=== PATIENT | female | born 1985 | race Caucasian/White ===

== ENCOUNTER 2019-08-06 18:58 | Emergency (ER) | payer MEDICAID ==
[~2019-08-06] VITALS: Ht 170.2 cm; Wt 50.3 kg
[2019-08-06] MEDS ORDERED: LORAZEPAM 1 MG TABLET PO ONE (19:30)
--- NOTE | 2019-08-06 19:30 | NUR ---
LOU, PICKED UP AT IN AND OUT, BRODERICK BUENO, ADMITS ON TAKING METH AND MARIJUANA, HAD 2 GLASS OF ALCOHOL, DENIES SI/HI, WANTS REHAB. PT AAOX3, VSS. DENIES CP, SOB, DIZZINESS, N/V @ THIS TIME. SEEN & EVAL'D BY MELISSA GLASGOW. PT CALM & COOPERATIVE. WILL CONT TO MONITOR.
[2019-08-06] MEDS ORDERED: LORAZEPAM 1 MG TABLET ONE (19:31)
[2019-08-06 19:50] LABS: BASOPHILS % (AUTO) 0.8 % (0.0-2.0); HEMATOCRIT 37 % (33-45); HEMOGLOBIN 12.2 g/dL (11.5-14.8); LYMPHOCYTES # (AUTO) 1.8 /CMM (0.8-4.8); LYMPHOCYTES % (AUTO) 30.1 % (20.0-44.0); MEAN CORPUSCULAR HGB CONC 33 g/dl (31.0-36.0); MEAN CORPUSCULAR VOLUME 90 fL (82-100); MONOCYTES # (AUTO) 0.4 /CMM (0.1-1.30); MONOCYTES % (AUTO) 7.1 % (2.0-12.0); NEUTROPHILS # (AUTO) 3.6 /CMM (1.8-8.9); PLATELET COUNT (AUTO) 342 /CMM (150-450); WHITE BLOOD COUNT (AUTO) 5.9 K/uL (4.3-11.0)
[2019-08-06 20:13] LABS: ALANINE AMINOTRANSFERASE 22 U/L (12-78); ALBUMIN 4.2 g/dL (3.4-5.0); ALKALINE PHOSPHATASE 67 U/L (46-116); ASPARTATE AMINOTRANSFERASE 20 U/L (15-37); BILIRUBIN,DIRECT 0.1 mg/dL (0.0-0.2); BILIRUBIN,TOTAL 0.3 mg/dL (0.2-1.0); CALCIUM, SERUM 9.6 mg/dL (8.5-10.1); CARBON DIOXIDE 28 mmol/L (21-32); CHLORIDE 101 mmol/L (98-107); CREATININE 0.8 mg/dL (0.6-1.3); GLUCOSE 106 mg/dL (74-106); POTASSIUM 3.2 mmol/L (3.5-5.1); SODIUM SERUM 139 mmol/L (136-145); UREA NITROGEN, BLOOD 13 mg/dL (7-18)
[2019-08-06 20:14] LABS: SALICYLATE < 2.8 mg/dL (2.8-20.0)
[2019-08-06 20:24] LABS: ALCOHOL, BLOOD 69 mg/dL (0-0)
--- NOTE | 2019-08-06 20:30 | NUR ---
MEDICATED ORDERED, PT CORBY WELL.
[2019-08-06 20:43] LABS: BILIRUBIN,URINE Negative (NEGATIVE); BLOOD, URINE Large Ery/uL (NEGATIVE); COLOR,URINE Red (YELLOW); KETONES,URINE Negative (NEGATIVE); LEUKOCYTE ESTERASE ,URINE Trace (NEGATIVE); NITRITE, URINE Negative (NEGATIVE); PROTEIN,URINE 100 mg/dl (NEGATIVE); UGLUCOSE Negative (NEGATIVE); UROBILINOGEN,URINE 0.2 EU/dL (0.2)
[2019-08-06 20:52] LABS: APPEARANCE,URINE HAZY (CLEAR)
[2019-08-06 20:53] LABS: BACTERIA,URINE Few /HPF (None Seen); RBC,URINE 51-80 /HPF (0-2); SQUAMOUS EPITHELIAL CELL,UR Few /HPF (None Seen)
--- NOTE | 2019-08-06 22:24 | NUR ---
Patient discharged to home in stable condition. Written and verbal after care instructions given. Patient verbalizes understanding of instruction. GIVEN HANDOUTS & REFERRAL PACKETS TO REHAB CENTERS AND PHONE NUMBERS TO SUBSTANCE ABUSE HOTLINE.
[2019-08-06 22:26] VITALS: BP 130/74
== END 2019-08-06 22:27 | disposition home or self-care (01) ==
LOC: ER 19:08
DX: F19.10 Other psychoactive substance abuse, uncomplicated (principal); Z72.89 Other problems related to lifestyle
CPT/HCPCS: 36415; 80048; 80076; 80305; 80307; 80329; 81001; 84702; 84703; 85025; 87086; 99283; G0480; 81000-TC; 87186-TC

== ENCOUNTER 2020-08-24 18:04 | Emergency (ER) | payer MEDICAID, OTHER ==
[~2020-08-24] VITALS: Ht 172.7 cm; Wt 60.8 kg
--- NOTE | 2020-08-24 18:16 | NUR ---
[id number], C/O PAUL. KNEE PAIN & RIGHT ELBOW SCAB, TO ER BED 10, HOOKED TO MONITOR, CHANGED TO GOWN, WARM BLANKET PROVIDED, AWAITING MD LARSEN
--- NOTE | 2020-08-24 18:23 | NUR ---
MELISSA HOOPER AT BEDSIDE
[2020-08-24] MEDS ORDERED: ACETAMINOPHEN 650 MG/20.3 ML UDC PO ONE (18:30)
[2020-08-24] MEDS ORDERED: ACETAMINOPHEN ES 500 MG TABLET ONE (18:32)
--- NOTE | 2020-08-24 18:34 | NUR ---
BILATERAL KNEE WOUND AND R ELBOW CLEANSED WITH NS, PAT DRY, BACITRACIN OINTMENT APPLIED. COVERED WITH DRY DRESSING.
--- NOTE | 2020-08-24 18:56 | NUR ---
Patient given written and verbal discharge instructions. Patient verbalizes understanding of instructions. Patient is ambulatory with steady gait. Refuses offer of group home placement. Patient given list of available shelters in surrounding area. Name band removed. On proper clothing upon discharge. All belongings with the patient upon discharge.
[2020-08-24 18:57] VITALS: BP 142/84
== END 2020-08-24 19:04 | disposition home or self-care (01) ==
LOC: ER 18:07
DX: S80.212A Abrasion, left knee, initial encounter (principal); S80.211A Abrasion, right knee, initial encounter; S50.311A Abrasion of right elbow, initial encounter; Z59.0 Homelessness; W19.XXXA Unspecified fall, initial encounter; Y93.89 Activity, other specified; Y92.89 Other specified places as the place of occurrence of the external cause; Y99.8 Other external cause status
CPT/HCPCS: 99283; A6403

== ENCOUNTER 2020-08-29 17:41 | Emergency (ER) | payer MEDICAID ==
[~2020-08-29] VITALS: Ht 172.7 cm; Wt 60.8 kg
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
[2020-08-29 18:30] LABS: BASOPHILS % (AUTO) 0.3 % (0.0-2.0); EOSINOPHILS % (AUTO) 0.8 % (0.0-6.0); HEMATOCRIT 36 % (33-45); HEMOGLOBIN 11.6 g/dL (11.5-14.8); MEAN CORPUSCULAR HGB CONC 32 g/dl (31.0-36.0); MEAN CORPUSCULAR VOLUME 89 fL (82-100); MONOCYTES # (AUTO) 0.4 /CMM (0.1-1.30); MONOCYTES % (AUTO) 6.6 % (2.0-12.0); NEUTROPHILS % (AUTO) 61.3 % (43.0-81.0); PLATELET COUNT (AUTO) 418 /CMM (150-450); RED BLOOD CELL COUNT(AUTO) 4.03 MIL/uL (4.0-5.2); WHITE BLOOD COUNT (AUTO) 6.5 K/uL (4.3-11.0)
[2020-08-29 18:36] LABS: CREATININE 0.9 mg/dL (0.6-1.3); POTASSIUM 3.5 mmol/L (3.5-5.1)
[2020-08-29 18:42] LABS: ALBUMIN 3.4 g/dL (3.4-5.0); BILIRUBIN,DIRECT 0.1 mg/dL (0.0-0.2); BILIRUBIN,TOTAL 0.1 mg/dL (0.2-1.0); TOTAL PROTEIN, SERUM 7.3 g/dL (6.4-8.2)
[2020-08-29 19:27] LABS: BILIRUBIN,URINE Negative (NEGATIVE); BLOOD, URINE Large Ery/uL (NEGATIVE); COLOR,URINE YELLOW (YELLOW); LEUKOCYTE ESTERASE ,URINE Negative (NEGATIVE); NITRITE, URINE Negative (NEGATIVE); PROTEIN,URINE Negative (NEGATIVE); UGLUCOSE Negative (NEGATIVE)
[2020-08-29 19:36] LABS: BACTERIA,URINE Few /HPF (None Seen); SQUAMOUS EPITHELIAL CELL,UR Few /HPF (None Seen); WBC,URINE 0-2 /HPF (0-3)
--- NOTE | 2020-08-29 20:39 | NUR ---
PT MARKED FOR DISCHARGE. AWAITING MD FOR [facility]
--- NOTE | 2020-08-29 20:43 | NUR ---
Patient discharged to home in stable condition. Written and verbal after care instructions given. Patient verbalizes understanding of instruction. Pt ambulatory with a steady gait. Homeless waiver signed by the patient. Pt did not want to wait for the [facility]CI.
[2020-08-29 23:32] VITALS: BP 117/70
== END 2020-08-29 20:45 | disposition home or self-care (01) ==
LOC: ER 17:46
DX: F28 Other psychotic disorder not due to a substance or known physiological condition (principal); F15.10 Other stimulant abuse, uncomplicated; R31.29 Other microscopic hematuria; Z59.0 Homelessness
CPT/HCPCS: 36415; 80048-TC; 80076-TC; 81000-TC; 84484-TC; 84702-TC; 85025-TC; G0480

== ENCOUNTER 2021-01-22 21:35 | Emergency (ER) | payer MEDICAID ==
[~2021-01-22] VITALS: Ht 172.7 cm; Wt 63.5 kg
[2021-01-22 21:51] VITALS: BP 126/88
[2021-01-22] MEDS ORDERED: LORAZEPAM 1 MG TABLET ONE (22:21)
[2021-01-22] MEDS ORDERED: LORAZEPAM 1 MG TABLET PO ONE (22:30)
== END 2021-01-22 22:44 | disposition home or self-care (01) ==
LOC: ER 21:37
DX: F41.9 Anxiety disorder, unspecified (principal); Z98.890 Other specified postprocedural states; Z59.0 Homelessness

== ENCOUNTER 2021-10-18 13:25 | Emergency (ER) | payer MEDICAID, OTHER ==
[~2021-10-18] VITALS: Ht 172.7 cm; Wt 54.4 kg
--- NOTE | 2021-10-18 13:25 | NUR ---
[address]IBRA [address] C/O VOMITING AFTER SMOKING FENTANYL. VITALS ARE WITHIN NORMAL LIMITS. BREATING IS EVEN AND UNLABORED
--- NOTE | 2021-10-18 13:49 | NUR ---
IV ESTABLISHED L AC #20G, LABS WERE DRAWN AND COLLECTED AT BEDSIDE
--- NOTE | 2021-10-18 13:51 | NUR ---
PT UNABLE TO PROVIDE URINE AT THIS TIME
[2021-10-18] MEDS ORDERED: ONDANSETRON HCL/PF 4 MG/2 ML VIAL ONE (13:55)
[2021-10-18] MEDS ORDERED: IV NS 0.9% 1,000 ML BAG IV ONE (14:00)
[2021-10-18] MEDS ORDERED: ONDANSETRON HCL/PF 4 MG/2 ML VIAL IVP ONE (14:00)
[2021-10-18 14:08] LABS: BASOPHILS # (AUTO) 0.1 K/uL (0.0-0.2); BASOPHILS % (AUTO) 0.8 % (0.0-2.0); EOSINOPHILS % (AUTO) 0.8 % (0.0-6.0); HEMATOCRIT 37 % (33-45); HEMOGLOBIN 12.1 g/dL (11.5-14.8); LYMPHOCYTES # (AUTO) 2.9 K/uL (0.8-4.8); LYMPHOCYTES % (AUTO) 26.9 % (20.0-44.0); MEAN CORPUSCULAR HGB CONC 33 g/dl (31.0-36.0); MEAN CORPUSCULAR VOLUME 84 fL (82-100); MONOCYTES # (AUTO) 0.8 K/uL (0.1-1.30); MONOCYTES % (AUTO) 7.5 % (2.0-12.0); NEUTROPHILS # (AUTO) 6.8 K/uL (1.8-8.9); PLATELET COUNT (AUTO) 385 K/uL (150-450); RED BLOOD CELL COUNT(AUTO) 4.42 MIL/uL (4.0-5.2); WHITE BLOOD COUNT (AUTO) 10.6 K/uL (4.3-11.0)
[2021-10-18 14:16] LABS: CALCIUM, SERUM 8.5 mg/dL (8.5-10.1); CREATININE 0.9 mg/dL (0.6-1.3); POTASSIUM 3.6 mmol/L (3.5-5.1)
[2021-10-18 14:23] LABS: ALBUMIN 3.6 g/dL (3.4-5.0); BILIRUBIN,DIRECT 0.1 mg/dL (0.0-0.2); BILIRUBIN,TOTAL 0.4 mg/dL (0.2-1.0); TOTAL PROTEIN, SERUM 7.2 g/dL (6.4-8.2)
[2021-10-18] MEDS ORDERED: FAMOTIDINE/PF INJ 20 MG/2 ML VIAL IV ONE ×3 (14:29→14:30)
[2021-10-18] MEDS ORDERED: MAG HYDROX/AL HYDROX/SIMETH 30 ML UDC ONE (14:30)
[2021-10-18] MEDS ORDERED: MAG HYDROX/AL HYDROX/SIMETH 30 ML UDC PO ONE (14:30)
--- NOTE | 2021-10-18 14:32 | NUR ---
PT NOT ABLE TO GIVE URINE SAMPLE. WILL TRY TO COLLECT URINE SAMPLE AGAIN LATER.
--- NOTE | 2021-10-18 14:41 | NUR ---
NEW IV ESTABLISHED L WRIST 20G
--- NOTE | 2021-10-18 14:45 | NUR ---
PLEASE CALL [facility] [phone] WHEN YOU ARE READY TO GO HOME.
--- NOTE | 2021-10-18 16:43 | NUR ---
URINE COLLECTED AND SENT
--- NOTE | 2021-10-18 17:12 | NUR ---
pending test for xray
[2021-10-18 18:16] LABS: BILIRUBIN,URINE NEGATIVE (NEGATIVE); COLOR,URINE YELLOW (YELLOW); LEUKOCYTE ESTERASE ,URINE NEGATIVE (NEGATIVE); NITRITE, URINE NEGATIVE (NEGATIVE); PROTEIN,URINE 100 mg/dl (NEGATIVE); UGLUCOSE NEGATIVE (NEGATIVE); UROBILINOGEN,URINE 0.2 EU/dL (0.2)
[2021-10-18 18:54] LABS: BACTERIA,URINE RARE /HPF (None Seen); RBC,URINE 0-2 /HPF (0-2); WBC,URINE 0-2 /HPF (0-3)
[2021-10-18 18:55] LABS: URINE AMORPHOUS PHOSPHATES Moderate /HPF (None Seen)
[2021-10-18] MEDS ORDERED: NALO4SPR NS (19:25)
--- NOTE | 2021-10-18 19:31 | NUR ---
Patient discharged to home in stable condition. Written and verbal after care instructions given. Patient verbalizes understanding of instruction.
[2021-10-18 19:34] VITALS: BP 122/84
== END 2021-10-18 19:34 | disposition home or self-care (01) ==
LOC: ER 13:31
DX: T40.601A Poisoning by unspecified narcotics, accidental (unintentional), initial encounter (principal); R11.2 Nausea with vomiting, unspecified; R10.13 Epigastric pain; Z98.890 Other specified postprocedural states; Z59.00 Homelessness unspecified; Y92.89 Other specified places as the place of occurrence of the external cause
CPT/HCPCS: 36415; 71045; 80048; 80076; 81001; 83690; 84703; 85025; 96361; 96374; 96375; 99284; J2405; J3490 ×2; J7030